=== PATIENT | male | born 1985 | race Caucasian/White ===

== ENCOUNTER 2016-05-25 22:04 | Emergency (ER) | payer OTHER ==
[~2016-05-25] VITALS: Ht 165.1 cm; Wt 81.8 kg
[2016-05-25 22:12] VITALS: BP 181/99; PULSE 139; RESP 20; O2SAT 97
[2016-05-25] MEDS ORDERED: LORazepam Oral Conc 2 mg/mL 30 mL Solution PO ONE (22:25)
[2016-05-25] MEDS ORDERED: Haloperidol 2 mg/mL 5 mL Oral Conc Liquid PO ONE (22:25)
[2016-05-25] MEDS ORDERED: LORazepam 2 mg Tablet ONE (22:26)
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
[2016-05-25 23:12] VITALS: BP 160/102; PULSE 128; RESP 18; O2SAT 98
[2016-05-26 03:06] VITALS: BP 118/72; PULSE 84; RESP 12; O2SAT 99
[2016-05-26 06:07] LABS: BASOPHILS % (AUTO) 0.4 % (0-3); EOSINOPHILS % (AUTO) 1.4 % (0-5); MONOCYTES % (AUTO) 9.5 % (4-12); Mean Corpuscular Hemoglobin 29.9 pg (27.0-35.0); Mean Corpuscular Volume 86.3 fL (81-100); NEUTROPHILS % (AUTO) 53.2 % (40-74); Platelet Count 238 bil/L (150-400)
[2016-05-26] MEDS ORDERED: LORA1TAB PO (13:24)
== END 2016-05-26 16:14 | disposition home or self-care (01) ==
LOC: SED 22:07
DX: F22 Delusional disorders (principal); F15.10 Other stimulant abuse, uncomplicated; F17.210 Nicotine dependence, cigarettes, uncomplicated; F12.10 Cannabis abuse, uncomplicated